=== PATIENT | female | born 2005 | race Caucasian/White ===

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

== ENCOUNTER 2024-06-20 12:31 | Emergency (ER) | payer SELFPAY ==
[2024-06-20 12:39] VITALS: BP 123/75; PULSE 76; RESP 16; TEMP 36.9; O2SAT 99
[2024-06-20 13:03] LABS: Basophils # 0.1 10^3/uL (0.0-0.1); Basophils % 0.6 %; Eosinophils % 0.4 %; Hematocrit 40.2 % (36-47); Lymphocytes % 18.8 %; Mean Corpuscular HGB Conc 33.8 g/dL (30-55); Mean Corpuscular Hemoglobin 30.9 pg (27-33); Mean Corpuscular Volume 91.4 fl (85-98); Mean Platelet Volume 10.5 fL (7.4-10.4); Monocytes # 0.5 10^3/uL (0.2-0.9); Monocytes % 4.8 %; Neutrophils # 7.96 10^3/uL (1.8-8.0); Neutrophils % 74.9 %; Nucleated Red Blood Cells % 0 %; Platelet Count 259 10^3/cmm (157-399); Red Cell Distribution Width 10.8 % (12.1-15.1); White Blood Count 10.62 10^3/uL (4.5-13.0)
--- NOTE | 2024-06-21 10:32 | PC.NURSE ---
Attempt to call patient after they LWBS yesterday. No answer and no voicemail available.
== END 2024-06-20 14:00 | disposition left against medical advice (07) ==
PROVIDERS: Emergency Medicine; Emergency Provider Family Medicine
DX: Z01.89 Encounter for other specified special examinations (principal); Z53.21 Procedure and treatment not carried out due to patient leaving prior to being seen by health care provider
CPT/HCPCS: 36415; 84702; 85025; 86850; 86900; 99283

== ENCOUNTER 2025-01-17 11:35 | Outpatient (CLI) | payer OTHER, MEDICAID, SELFPAY ==
[2025-01-17] VITALS (10 sets, daily range): BP systolic 110–139; BP diastolic 59–83; PULSE 71–95; RESP 16; BMI 27.1
[2025-01-17 12:17] LABS: Hematocrit 31.8 % (36-47); Hemoglobin 10.10 g/dL (11.27-16.99); Mean Corpuscular HGB Conc 31.8 g/dL (30-55); Mean Corpuscular Hemoglobin 27.3 pg (27-33); Mean Corpuscular Volume 85.9 fl (85-98); Nucleated Red Blood Cells % 0 %; Platelet Count 275 10^3/cmm (157-399); Red Blood Count 3.70 10^6/uL (3.85-5.65); White Blood Count 10.47 10^3/uL (3.29-11.43)
[2025-01-17 12:42] LABS: Alanine Aminotransferase 12 U/L (0-33); Albumin Level 3.7 g/dL (3.5-5.2); Alkaline Phosphatase 188 U/L (35-105); Anion Gap 16.9 (5-19); Aspartate Amino Transferase 17 U/L (0-32); Blood Urea Nitrogen 8 mg/dL (6-20); Calcium 8.7 mg/dL (8.5-10.5); Carbon Dioxide 21 mmol/L (22-29); Chloride 100 mmol/L (98-107); Globulin 3.3 g/dL (1.3-4.6); Glucose 87 mg/dL (65-115); Osmolality Calculated 276 mOsm/kg (285-295); Potassium 3.9 mmol/L (3.5-5.1); Sodium 134 mmol/L (136-145); Total Protein 7.0 g/dL (6.6-8.7)
[2025-01-17 12:48] LABS: Glucose Urine UA Negative (Normal); Nitrate Urine Negative (Negative); Specific Gravity, Urine 1.006 (1.005-1.030)
[2025-01-17 12:50] LABS: Add Urine Microscopic? YES
[2025-01-17 13:14] LABS: UPRO/UCREAT Ratio 0.11 mg/mg CR
[2025-01-17 13:42] LABS: Uric Acid 2.6 mg/dL (2.4-5.7)
== END 2025-01-17 14:00 | disposition home or self-care (01) ==
LOC: OPOB 11:35 → OBGYN 11:36
PROVIDERS: PCP Family Medicine; Visit Provider Family Medicine
DX: O13.9 Gestational [pregnancy-induced] hypertension without significant proteinuria, unspecified trimester (principal); Z3A.00 Weeks of gestation of pregnancy not specified
CPT/HCPCS: 59025; 80053; 81001; 82570; 83615; 84156; 84550; 85025; 87086; 99211